=== PATIENT | female | born 1980 | race Caucasian/White ===

== ENCOUNTER 2017-10-18 01:20 | Emergency (ER) | payer BC ==
[~2017-10-18] VITALS: Ht 175.3 cm; Wt 85.0 kg
[2017-10-18 01:25] VITALS: BP 138/72; TEMP 98.5
[2017-10-18 02:04] LABS: BASO # 0.1 (0.0-0.2); BASO % 0.7 % (0.0-2.0); EOS # 0.2 (0.0-0.7); EOS % 1.7 % (0-4.0); GRAN # 4.5 (1.4-6.5); GRAN % 46.5 % (42.2-75.2); HEMOGLOBIN 13.6 g/dl (12.5-16.0); LYMPH % 41.4 % (20.0-51.0); MEAN CELL VOLUME 98 fl (80.0-100.0); MEAN CORPUSCULAR HEMOGLOBIN 33 pg (27.0-31.0); MEAN CORPUSCULAR HGB CONC 34 g/dl (33.0-37.0); MONO # 0.9 (0.1-0.6); MONO % 9.4 % (1.7-9.3); PLATELET COUNT 214 K/mm3 (130-400); RED BLOOD COUNT 4.08 M/mm3 (4.10-5.30); REDCELL DISTRIBUTION WIDTH-CV 11.9 % (11.5-14.5)
[2017-10-18 02:13] LABS: ALBUMIN 4.4 gm/dL (3.5-5.0); BILIRUBIN,TOTAL 0.4 mg/dL (0.0-1.0); CALCIUM 10.2 mg/dL (8.4-10.2); CREATININE, serum 0.73 mg/dL (0.52-1.25); TOTAL PROTEIN 7.5 gm/dL (6.4-8.2)
[2017-10-18 03:00] LABS: COLLECTION METHOD CLEAN CATCH
[2017-10-18 03:06] LABS: MUCOUS Present /lpf; PH 6 (5-8); SQUAMOUS EPITHELIAL 0-2 /hpf; URINE APPEARANCE Clear; URINE BACTERIA None Seen /hpf; URINE BILIRUBIN Negative (NEGATIVE); URINE BLOOD 1+ (NEGATIVE); URINE COLOR Yellow; URINE GLUCOSE Negative (NEGATIVE); URINE KETONE Negative (NEGATIVE); URINE LEUKOCYTE ESTERASE Negative (NEGATIVE); URINE NITRATE Negative (NEGATIVE); URINE PROTEIN(semi-quant) Negative (NEGATIVE); URINE RBC 0-2 /hpf; URINE UROBILINOGEN Negative (NEGATIVE)
[2017-10-18] MEDS ORDERED: ZOFRAN ODT4 MG PO (03:13)
[2017-10-18] MEDS ORDERED: NORCO 325 MG-51 TAB PO (03:13)
[2017-10-18 03:41] VITALS: PULSE 70
== END 2017-10-18 03:42 | disposition home or self-care (01) ==
LOC: COL.ER 01:20
PROVIDERS: Physician Assistant
DX: S22.32XA Fracture of one rib, left side, initial encounter for closed fracture (principal); J93.9 Pneumothorax, unspecified; Z90.710 Acquired absence of both cervix and uterus; W18.39XA Other fall on same level, initial encounter; W22.8XXA Striking against or struck by other objects, initial encounter
CPT/HCPCS: J1170; J2405; J7030; Q9967

== ENCOUNTER 2018-06-11 07:06 | Emergency (ER) | payer BC ==
[~2018-06-11] VITALS: Ht 172.7 cm; Wt 71.8 kg
[~2018-06-11 07:06] MED LIST: NORCO 325 MG-51 TAB PO; ZOFRAN ODT4 MG PO
[2018-06-11 07:13] VITALS: BP 148/92; TEMP 98
[2018-06-11] MEDS ORDERED: NORCO 325 MG-51 TAB PO (08:12)
[2018-06-11 08:21] VITALS: PULSE 88
== END 2018-06-11 08:22 | disposition home or self-care (01) ==
LOC: COL.ER 07:06
DX: S69.92XA Unspecified injury of left wrist, hand and finger(s), initial encounter (principal); X50.1XXA Overexertion from prolonged static or awkward postures, initial encounter; Y92.009 Unspecified place in unspecified non-institutional (private) residence as the place of occurrence of the external cause; Z90.710 Acquired absence of both cervix and uterus; F17.200 Nicotine dependence, unspecified, uncomplicated

== ENCOUNTER 2018-09-01 15:19 | Emergency (ER) | payer BC ==
[~2018-09-01] VITALS: Ht 175.3 cm; Wt 73.6 kg
[2018-09-01 15:23] VITALS: TEMP 98.5
[2018-09-01 15:54] LABS: COLLECTION METHOD CLEAN CATCH
[2018-09-01 16:01] LABS: MUCOUS Present /lpf; PH 6 (5-8); SQUAMOUS EPITHELIAL 0-2 /hpf; URINE APPEARANCE Clear; URINE BACTERIA Rare /hpf; URINE BILIRUBIN Negative (NEGATIVE); URINE BLOOD Negative (NEGATIVE); URINE COLOR Straw; URINE GLUCOSE Negative (NEGATIVE); URINE KETONE Negative (NEGATIVE); URINE LEUKOCYTE ESTERASE Negative (NEGATIVE); URINE NITRATE Negative (NEGATIVE); URINE PROTEIN(semi-quant) Negative (NEGATIVE); URINE RBC 0-2 /hpf; URINE UROBILINOGEN Negative (NEGATIVE)
[2018-09-01 16:11] LABS: BASO # 0.1 (0.0-0.2); BASO % 0.8 % (0.0-2.0); EOS # 0.1 (0.0-0.7); GRAN # 4.6 (1.4-6.5); HEMATOCRIT 45.9 % (37.0-47.0); HEMOGLOBIN 16.1 g/dl (12.5-16.0); LYMPH # 3.2 (1.2-3.4); MEAN CELL VOLUME 102 fl (80.0-100.0); MEAN CORPUSCULAR HEMOGLOBIN 36 pg (27.0-31.0); MEAN CORPUSCULAR HGB CONC 35 g/dl (33.0-37.0); MEAN PLATELET VOLUME 8.9 fl (7.4-10.4); MONO # 0.9 (0.1-0.6); PLATELET COUNT 227 K/mm3 (130-400); RED BLOOD COUNT 4.49 M/mm3 (4.10-5.30); REDCELL DISTRIBUTION WIDTH-CV 11.9 % (11.5-14.5)
[2018-09-01 16:18] LABS: TRICYCLIC ANTIDEPRESS URINE NEGATIVE
[2018-09-01 16:23] LABS: ALANINE AMINOTRANSFERASE 19 U/L (9-52); ALBUMIN 4.5 gm/dL (3.5-5.0); ALCOHOL(ethanol),MEDICAL 200 mg/dL; ALKALINE PHOSPHATASE 65 U/L (50-136); ANION GAP 9 mmol/L (7-16); AST,SGOT 38 U/L (15-37); BILIRUBIN,TOTAL 0.6 mg/dL (0.0-1.0); BLOOD UREA NITROGEN 7 mg/dL (7-17); CALCIUM 9.6 mg/dL (8.4-10.2); CARBON DIOXIDE 25 mmol/L (22-30); CHLORIDE 108 mmol/L (98-107); CREATININE, serum 0.73 mg/dL (0.52-1.25); GLUCOSE 88 mg/dL (74-106); POTASSIUM 4.2 mmol/L (3.4-5.0); SODIUM 143 mmol/L (137-145); TOTAL PROTEIN 7.8 gm/dL (6.4-8.2)
[2018-09-01 16:29] LABS: ACETAMINOPHEN < 10 ug/mL (10-30); SALICYLATE < 1.0 mg/dL
[2018-09-02 00:27] VITALS: BP 142/93; PULSE 101
== END 2018-09-02 00:30 ==
LOC: COL.ER 15:19
PROVIDERS: Emergency Medicine
DX: R45.851 Suicidal ideations (principal); F32.9 Major depressive disorder, single episode, unspecified; F10.129 Alcohol abuse with intoxication, unspecified; Z90.710 Acquired absence of both cervix and uterus; F17.210 Nicotine dependence, cigarettes, uncomplicated; Y90.7 Blood alcohol level of 200-239 mg/100 ml

== ENCOUNTER → 2020-05-07 | Outpatient (CLI) | payer MEDICAID | LOC: MC.RAD 15:13 | DX: Z12.31 Encounter for screening mammogram for malignant neoplasm of breast (principal); N63.20 Unspecified lump in the left breast, unspecified quadrant; N63.10 Unspecified lump in the right breast, unspecified quadrant ==

== ENCOUNTER → 2020-05-14 | Outpatient (CLI) | payer MEDICAID | LOC: MC.RAD 06:57 | DX: N63.20 Unspecified lump in the left breast, unspecified quadrant (principal) ==

== ENCOUNTER → 2020-05-19 | Outpatient (CLI) | payer MEDICAID | LOC: MC.RAD 08:00 | DX: N63.10 Unspecified lump in the right breast, unspecified quadrant (principal) ==

== ENCOUNTER 2020-12-10 02:08 | Emergency (ER) | payer MEDICAID ==
[~2020-12-10] VITALS: Ht 175.3 cm; Wt 93.2 kg
[2020-12-10 02:18] VITALS: TEMP 98.3
[2020-12-10 02:48] LABS: COLLECTION METHOD CLEAN CATCH
[2020-12-10 02:51] LABS: HEMATOCRIT 45.4 % (37.0-47.0); HEMOGLOBIN 15.7 g/dl (12.5-16.0); MEAN CELL VOLUME 93 fl (80.0-100.0); MEAN CORPUSCULAR HEMOGLOBIN 32 pg (27.0-31.0); MEAN CORPUSCULAR HGB CONC 35 g/dl (33.0-37.0); MEAN PLATELET VOLUME 8.4 fl (7.4-10.4); PLATELET COUNT 222 K/mm3 (130-400); RED BLOOD COUNT 4.89 M/mm3 (4.10-5.30); REDCELL DISTRIBUTION WIDTH-CV 13.1 % (11.5-14.5)
[2020-12-10 02:55] LABS: PH 6 (5-8); SQUAMOUS EPITHELIAL 0-2 /hpf; URINE APPEARANCE Clear; URINE BACTERIA Rare /hpf; URINE BILIRUBIN Negative (NEGATIVE); URINE BLOOD Negative (NEGATIVE); URINE COLOR Straw; URINE GLUCOSE Negative (NEGATIVE); URINE KETONE Negative (NEGATIVE); URINE LEUKOCYTE ESTERASE Negative (NEGATIVE); URINE NITRATE Negative (NEGATIVE); URINE PROTEIN(semi-quant) Negative (NEGATIVE); URINE RBC None Seen /hpf; URINE UROBILINOGEN Negative (NEGATIVE); URINE WBC 0-2 /hpf
[2020-12-10 03:02] LABS: ALBUMIN 3.8 gm/dL (3.5-5.0); BILIRUBIN,TOTAL 0.6 mg/dL (0.0-1.0); CALCIUM 8.3 mg/dL (8.4-10.2); CREATININE, serum 0.84 (0.52-1.25); POTASSIUM 3.8 mmol/L (3.4-5.0); TOTAL PROTEIN 7.6 gm/dL (6.4-8.2)
[2020-12-10] MEDS ORDERED: REGLAN 5MG T5 MG/TAB PO (03:32)
[2020-12-10] MEDS ORDERED: BENTYL 20MG20 MG/TAB PO (03:32)
[2020-12-10 03:59] VITALS: BP 131/84; PULSE 62
[2020-12-10 04:18] LABS: EOSINOPHIL 2 % (0-4); LYMPHOCYTE 41 % (20.0-51.0); NEUTROPHILS 50 % (42.0-75.2); PLATELET ESTIMATE NORMAL (NORMAL)
[2020-12-10 04:19] LABS: ANISOCYTOSIS 1+
[2021-03-04] MEDS ORDERED: FISH OIL1000 MG PO (08:13)
== END 2020-12-10 04:06 | disposition home or self-care (01) ==
LOC: COL.ER 02:08
PROVIDERS: Emergency Medicine
DX: R19.7 Diarrhea, unspecified (principal); Z90.710 Acquired absence of both cervix and uterus
CPT/HCPCS: J7120; Q9967

== ENCOUNTER 2020-12-29 19:48 | Emergency (ER) | payer MEDICAID ==
[~2020-12-29] VITALS: Ht 175.3 cm; Wt 93.2 kg
[~2020-12-29 19:48] MED LIST changes: +BENTYL 20MG20 MG/TAB PO; +REGLAN 5MG T5 MG/TAB PO
[2020-12-29 20:01] VITALS: TEMP 98
[2020-12-29] MEDS ORDERED: PROTONIX 40MG T40 MG PO (20:28)
[2020-12-29] MEDS ORDERED: LEXAPRO 10MG10 MG PO (20:29)
[2020-12-29] MEDS ORDERED: ZOFRAN 4MG T4 MG/TAB PO (20:30)
[2020-12-29] MEDS ORDERED: ATARAX 25MG25 MG/TAB PO (20:31)
[2020-12-29 21:42] LABS: BASO # 0.1 (0.0-0.2); BASO % 0.8 % (0.0-2.0); EOS # 0.1 (0.0-0.7); EOS % 1.1 % (0-4.0); GRAN # 2.8 (1.4-6.5); GRAN % 31.5 % (42.2-75.2); HEMOGLOBIN 14.9 g/dl (12.5-16.0); LYMPH # 4.9 (1.2-3.4); LYMPH % 55.8 % (20.0-51.0); MEAN CELL VOLUME 94 fl (80.0-100.0); MEAN CORPUSCULAR HEMOGLOBIN 33 pg (27.0-31.0); MEAN CORPUSCULAR HGB CONC 35 g/dl (33.0-37.0); MEAN PLATELET VOLUME 8.5 fl (7.4-10.4); MONO # 0.9 (0.1-0.6); MONO % 10.6 % (1.7-9.3); PLATELET COUNT 261 K/mm3 (130-400); RED BLOOD COUNT 4.58 M/mm3 (4.10-5.30); REDCELL DISTRIBUTION WIDTH-CV 13.2 % (11.5-14.5)
[2020-12-29 21:49] LABS: ALBUMIN 4.2 gm/dL (3.5-5.0); BILIRUBIN,TOTAL 0.5 mg/dL (0.0-1.0); CALCIUM 8.5 mg/dL (8.4-10.2); CREATININE, serum 0.84 (0.52-1.25); POTASSIUM 3.6 mmol/L (3.4-5.0); TOTAL PROTEIN 8.4 gm/dL (6.4-8.2)
[2020-12-29] MEDS ORDERED: BENTYL 20MG20 MG/TAB PO (22:24)
[2020-12-29] MEDS ORDERED: FLAGYL500 MG PO (22:24)
[2020-12-29] MEDS ORDERED: PHENERGAN 25 TA25 MG PO (22:24)
[2020-12-29 22:52] VITALS: BP 119/85; PULSE 67
[2021-03-04] MEDS ORDERED: FISH OIL1000 MG PO (08:13)
== END 2020-12-29 23:02 | disposition home or self-care (01) ==
LOC: COL.ER 19:48
PROVIDERS: Nurse Practitioner Primary Care
DX: K52.9 Noninfective gastroenteritis and colitis, unspecified (principal); F32.9 Major depressive disorder, single episode, unspecified; F41.9 Anxiety disorder, unspecified; F17.210 Nicotine dependence, cigarettes, uncomplicated; Z90.710 Acquired absence of both cervix and uterus
CPT/HCPCS: J2550; J7030

== ENCOUNTER 2021-02-01 03:12 | Inpatient (IN) | payer MEDICAID ==
[~2021-02-01] VITALS: Ht 175.3 cm; Wt 86.3 kg
[~2021-02-01 03:12] MED LIST changes: +ATARAX 25MG25 MG/TAB PO; +FLAGYL500 MG PO; +LEXAPRO 10MG10 MG PO; +PHENERGAN 25 TA25 MG PO; +PROTONIX 40MG T40 MG PO; +ZOFRAN 4MG T4 MG/TAB PO
[2021-02-01 04:11] LABS: BASO # 0.1 (0.0-0.2); BASO % 0.7 % (0.0-2.0); EOS % 0.3 % (0-4.0); GRAN # 3.8 (1.4-6.5); GRAN % 50.2 % (42.2-75.2); HEMATOCRIT 39.8 % (37.0-47.0); LYMPH # 3.1 (1.2-3.4); LYMPH % 40.6 % (20.0-51.0); MEAN CELL VOLUME 91 fl (80.0-100.0); MEAN CORPUSCULAR HEMOGLOBIN 34 pg (27.0-31.0); MEAN CORPUSCULAR HGB CONC 38 g/dl (33.0-37.0); MEAN PLATELET VOLUME 9.5 fl (7.4-10.4); MONO # 0.6 (0.1-0.6); MONO % 7.8 % (1.7-9.3); PLATELET COUNT 167 K/mm3 (130-400); RED BLOOD COUNT 4.36 M/mm3 (4.10-5.30); REDCELL DISTRIBUTION WIDTH-CV 14.4 % (11.5-14.5)
[2021-02-01 04:18] LABS: COLLECTION METHOD CLEAN CATCH
[2021-02-01 04:29] LABS: PH 7 (5-8); URINE APPEARANCE Hazy; URINE BACTERIA Rare /hpf; URINE BILIRUBIN Negative (NEGATIVE); URINE BLOOD Negative (NEGATIVE); URINE COLOR Amber; URINE GLUCOSE Negative (NEGATIVE); URINE KETONE Trace (NEGATIVE); URINE LEUKOCYTE ESTERASE Negative (NEGATIVE); URINE NITRATE Negative (NEGATIVE); URINE PROTEIN(semi-quant) 1+ (NEGATIVE); URINE RBC 0-2 /hpf; URINE UROBILINOGEN Negative (NEGATIVE)
[2021-02-01 05:03] LABS: ALBUMIN 3.8 gm/dL (3.5-5.0); CALCIUM 8.8 mg/dL (8.4-10.2); CREATININE, serum 0.69 (0.52-1.25); TOTAL PROTEIN 7.8 gm/dL (6.4-8.2)
[2021-02-01 05:05] LABS: POTASSIUM 3.6 mmol/L (3.4-5.0)
[2021-02-01 05:21] LABS: TROPONIN-I 0.175 ng/mL (0.000-0.035)
[2021-02-01 08:23] VITALS: BP 139/76; PULSE 63; TEMP 98.7
--- NOTE | 2021-02-01 08:54 | NUR ---
SW met with the patient to discuss discharge plan. The patient lives in [place] with her boyfriend, Urbano Gamino ([id number]#[phone]), and her children. She states that Urbano is in [facility] right now and that her children are staying with their father while she is here. She reports independence with ADLs and does not have any DME. The patient's PCP is Dr. Hilario Dickey and she receives her medications from [facility]. She reports no difficulties obtaining her meds. The patien does not have a DPOA-HC, but she states that she believes she has one completed and that it designates her father. The patient plans to return home upon discharge. No additional needs at this time. *Discharge plan: home*
[2021-02-01] MEDS ORDERED: VITAMIN B11000 MCG/M (09:28)
--- NOTE | 2021-02-01 09:30 | NUR ---
Patient admitted to room 347. All admission paperwork completed. Ivf per orders. Npo per orders. few ice chips provided. Morphine for pain per request. Will monitor.
--- NOTE | 2021-02-01 11:00 | NUR ---
Spoke to , orders obtained. He reports his PA Jayce will see patient. Cardiology saw patient. Aware of troponin. Echo completed.
[2021-02-01 11:17] VITALS: BP 121/74; PULSE 73; TEMP 99.3
[2021-02-01 16:20] VITALS: BP 138/81; PULSE 83; TEMP 98.6
--- NOTE | 2021-02-01 18:13 | NUR ---
Patient resting in bed. Spoke to Dr. Lundberg. Medication orders obtained. Patient has complaints of headache & gas pain. I updated her on plan of care.
[2021-02-01 19:32] VITALS: BP 146/93; PULSE 71; TEMP 98.6
--- NOTE | 2021-02-01 21:30 | NUR ---
Patient resting in bed. No nausea. Complaints of a headache, tylenol administered. IV fluids infusing. Patient tolerating clear liquid diet. No other needs at this time.
[2021-02-02 00:36] VITALS: BP 126/73; PULSE 46; TEMP 97.7
[2021-02-02 04:49] VITALS: BP 125/73; PULSE 43; TEMP 98.5
[2021-02-02 07:39] VITALS: BP 123/71; PULSE 69; TEMP 98.1
--- NOTE | 2021-02-02 10:53 | NUR ---
Patient alert and oriented, answers questions appropriately. See assessment. Abdomen soft, non distended, tender. +Flatus. +Bowel movement. No c/o at this time.
--- NOTE | 2021-02-02 12:16 | NUR ---
First visit from the beef specialist. No needs right now.
[2021-02-02 12:19] VITALS: BP 138/70; PULSE 53; TEMP 98.5
[2021-02-02 14:41] LABS: ALBUMIN 3.1 gm/dL (3.5-5.0); BILIRUBIN UNCONJUGATED 0.7 mg/dL (0.0-1.1); BILIRUBIN,DIRECT 1.1 mg/dL (0.0-0.4); BILIRUBIN,TOTAL 1.7 mg/dL (0.0-1.0); TOTAL PROTEIN 6.5 gm/dL (6.4-8.2)
[2021-02-02 15:04] LABS: ANION GAP 6 mmol/L (7-16); CALCIUM 8.3 mg/dL (8.4-10.2); CARBON DIOXIDE 29 mmol/L (22-30); CHLORIDE 101 mmol/L (98-107); CREATININE, serum 0.67 (0.52-1.25); GLUCOSE 112 mg/dL (74-106); PHOSPHOROUS 3.2 mg/dL (2.5-4.5); SODIUM 136 mmol/L (137-145)
[2021-02-02 15:05] LABS: BLOOD UREA NITROGEN < 2 mg/dL (7-17)
[2021-02-02 15:07] LABS: POTASSIUM 2.8 mmol/L (3.4-5.0)
[2021-02-02 16:46] VITALS: BP 136/84; PULSE 62; TEMP 98.5
[2021-02-02 19:48] VITALS: BP 118/70; PULSE 62; TEMP 98.4
--- NOTE | 2021-02-02 21:00 | NUR ---
Patient has no complaints of pain. Fluids and potassium infusing per orders. PAtient tolerating clear liquid diet. Ambulating in room independently. No additional needs at this time.
[2021-02-03] VITALS (7 sets, daily range): BP systolic 97–137; BP diastolic 73–91; PULSE 48–94; TEMP 97.3–98.5
--- NOTE | 2021-02-03 01:00 | NUR ---
Patient is having frequent episodes of diarrhea. New orders for immodium.
[2021-02-03 07:06] LABS: BASO % 0.7 % (0.0-2.0); EOS # 0.1 (0.0-0.7); EOS % 2.1 % (0-4.0); GRAN # 2.2 (1.4-6.5); GRAN % 37.9 % (42.2-75.2); LYMPH # 2.9 (1.2-3.4); LYMPH % 49.1 % (20.0-51.0); MEAN CORPUSCULAR HGB CONC 33 g/dl (33.0-37.0); MONO # 0.6 (0.1-0.6); MONO % 9.9 % (1.7-9.3); PLATELET COUNT 108 K/mm3 (130-400); RED BLOOD COUNT 3.42 M/mm3 (4.10-5.30); REDCELL DISTRIBUTION WIDTH-CV 14.8 % (11.5-14.5)
[2021-02-03 07:14] LABS: ALANINE AMINOTRANSFERASE 75 U/L (4-34); ALBUMIN 2.7 gm/dL (3.5-5.0); ALKALINE PHOSPHATASE 165 U/L (50-136); ANION GAP 3 mmol/L (7-16); AST,SGOT 239 U/L (15-37); BILIRUBIN,TOTAL 1.8 mg/dL (0.0-1.0); CALCIUM 8.4 mg/dL (8.4-10.2); CARBON DIOXIDE 27 mmol/L (22-30); CHLORIDE 106 mmol/L (98-107); CREATININE, serum 0.62 (0.52-1.25); GLUCOSE 81 mg/dL (74-106); HEMATOCRIT 32.9 % (37.0-47.0); HEMOGLOBIN 10.9 g/dl (12.5-16.0); MEAN CELL VOLUME 96 fl (80.0-100.0); MEAN CORPUSCULAR HEMOGLOBIN 32 pg (27.0-31.0); POTASSIUM 4.2 mmol/L (3.4-5.0); SODIUM 136 mmol/L (137-145); TOTAL PROTEIN 5.9 gm/dL (6.4-8.2)
[2021-02-03 07:17] LABS: BLOOD UREA NITROGEN < 2 mg/dL (7-17)
--- NOTE | 2021-02-03 09:29 | NUR ---
PT RETURNED TO ROOM FROM HIDA SCAN. PT IS A/O X3, INDEPENDENT IN AND OUT OF ROOM. PT SHOWERING INDEPENDENTLY. POSSIBLE DISCHARGE HOME LATER TODAY.
--- NOTE | 2021-02-03 21:00 | NUR ---
Pt. sitting up in bed. Pt. is a&Ox3, assessment complete. INT to lt. wrist patent. Pt. denies pain or other needs, call light within reach.
[2021-02-04 03:57] VITALS: BP 141/86; PULSE 50; TEMP 98
[2021-02-04 07:00] LABS: BASO % 0.5 % (0.0-2.0); EOS # 0.1 (0.0-0.7); EOS % 2.6 % (0-4.0); GRAN # 2.1 (1.4-6.5); GRAN % 38.6 % (42.2-75.2); HEMOGLOBIN 11.2 g/dl (12.5-16.0); LYMPH # 2.6 (1.2-3.4); LYMPH % 47.1 % (20.0-51.0); MEAN CELL VOLUME 97 fl (80.0-100.0); MEAN CORPUSCULAR HEMOGLOBIN 32 pg (27.0-31.0); MEAN CORPUSCULAR HGB CONC 34 g/dl (33.0-37.0); MEAN PLATELET VOLUME 10.1 fl (7.4-10.4); MONO # 0.6 (0.1-0.6); MONO % 10.8 % (1.7-9.3); PLATELET COUNT 119 K/mm3 (130-400); RED BLOOD COUNT 3.46 M/mm3 (4.10-5.30); REDCELL DISTRIBUTION WIDTH-CV 14.7 % (11.5-14.5)
[2021-02-04 07:02] LABS: HEMATOCRIT 33.4 % (37.0-47.0)
[2021-02-04 07:15] LABS: ALANINE AMINOTRANSFERASE 77 U/L (4-34); ALKALINE PHOSPHATASE 173 U/L (50-136); ANION GAP 7 mmol/L (7-16); AST,SGOT 202 U/L (15-37); BILIRUBIN,TOTAL 1.5 mg/dL (0.0-1.0); CALCIUM 8.6 mg/dL (8.4-10.2); CARBON DIOXIDE 26 mmol/L (22-30); CHLORIDE 105 mmol/L (98-107); CREATININE, serum 0.64 (0.52-1.25); GLUCOSE 88 mg/dL (74-106); SODIUM 138 mmol/L (137-145); TOTAL PROTEIN 6.4 gm/dL (6.4-8.2)
[2021-02-04 07:17] LABS: BLOOD UREA NITROGEN < 2 mg/dL (7-17)
--- NOTE | 2021-02-04 07:39 | NUR ---
PT INDEPENDENT IN AND OUT OF ROOM. ASSESSMENTS COMPLETE VSS, LABS WNL, PAIN WELL CONTROLLED WITH PO MEDS. PT SHOWER INDEPENDENTLY.
[2021-02-04 08:00] VITALS: BP 148/93; PULSE 59; TEMP 98.3
--- NOTE | 2021-02-04 12:44 | NUR ---
REVIEWED DISCHARGE INSTRUCTIONS WITH PATIENT ANSWERED QUESTIONS. PT LEFT FLOOR AMBULATORY. INT DISCONTINUED PT TOLERATED WELL.
[2021-03-04] MEDS ORDERED: FISH OIL1000 MG PO (08:13)
== END 2021-02-04 12:46 | disposition home or self-care (01) | DRG 439 ==
LOC: COL.ER 03:12 → SURG 06:24
PROVIDERS: Emergency Medicine; Physician Assistant; ADMIT Emergency Medicine
DX: K85.90 Acute pancreatitis without necrosis or infection, unspecified (principal); E87.1 Hypo-osmolality and hyponatremia; K58.9 Irritable bowel syndrome, unspecified; K21.9 Gastro-esophageal reflux disease without esophagitis; F17.210 Nicotine dependence, cigarettes, uncomplicated; F32.9 Major depressive disorder, single episode, unspecified; F41.9 Anxiety disorder, unspecified; E86.0 Dehydration; K76.0 Fatty (change of) liver, not elsewhere classified; E87.6 Hypokalemia; K82.8 Other specified diseases of gallbladder; K81.1 Chronic cholecystitis; I10 Essential (primary) hypertension; Z90.710 Acquired absence of both cervix and uterus
CPT/HCPCS: 99232-AI; 99238; A9537; J1650; J2270; J2405; J3480; J7030; J7120; Q9967

== ENCOUNTER → 2021-03-08 | Outpatient (CLI) | payer MEDICAID ==
[~2021-03-08] VITALS: Ht 175.4 cm; Wt 95.0 kg
[~2021-03-08] MED LIST changes: +FISH OIL1000 MG PO; +VITAMIN B11000 MCG/M
[2021-03-08 11:27] VITALS: BP 119/68; PULSE 49
== END ==
LOC: COL.CARD 10:23
DX: I21.4 Non-ST elevation (NSTEMI) myocardial infarction (principal)
CPT/HCPCS: A9500

== ENCOUNTER → 2021-06-04 | Outpatient (CLI) | payer MEDICAID | LOC: MC.RAD 08:48 | DX: Z12.31 Encounter for screening mammogram for malignant neoplasm of breast (principal) ==

== ENCOUNTER 2021-06-14 18:47 | Emergency (ER) | payer MEDICAID ==
[~2021-06-14] VITALS: Ht 175.3 cm; Wt 95.5 kg
[2021-06-14 20:10] LABS: COLLECTION METHOD CLEAN CATCH
[2021-06-14 20:16] LABS: BASO % 0.6 % (0.0-2.0); EOS % 0.4 % (0-4.0); GRAN # 3.7 (1.4-6.5); GRAN % 54.5 % (42.2-75.2); HEMATOCRIT 42.1 % (37.0-47.0); HEMOGLOBIN 14.6 g/dl (12.5-16.0); LYMPH # 2.7 (1.2-3.4); LYMPH % 39.9 % (20.0-51.0); MEAN CELL VOLUME 87 fl (80.0-100.0); MEAN CORPUSCULAR HEMOGLOBIN 30 pg (27.0-31.0); MEAN CORPUSCULAR HGB CONC 35 g/dl (33.0-37.0); MONO # 0.3 (0.1-0.6); MONO % 4.5 % (1.7-9.3); PLATELET COUNT 262 K/mm3 (130-400); RED BLOOD COUNT 4.83 M/mm3 (4.10-5.30); REDCELL DISTRIBUTION WIDTH-CV 12.2 % (11.5-14.5)
[2021-06-14 20:20] LABS: PH 6 (5-8); SQUAMOUS EPITHELIAL 0-2 /hpf; URINE APPEARANCE Clear; URINE BACTERIA None Seen /hpf; URINE BILIRUBIN Negative (NEGATIVE); URINE BLOOD Negative (NEGATIVE); URINE COLOR Yellow; URINE GLUCOSE Negative (NEGATIVE); URINE KETONE Trace (NEGATIVE); URINE LEUKOCYTE ESTERASE Negative (NEGATIVE); URINE NITRATE Negative (NEGATIVE); URINE PROTEIN(semi-quant) Negative (NEGATIVE); URINE RBC 0-2 /hpf; URINE UROBILINOGEN Negative (NEGATIVE)
[2021-06-14 20:35] LABS: ALBUMIN 4.2 gm/dL (3.5-5.0); BILIRUBIN,TOTAL 0.3 mg/dL (0.2-1.2); CREATININE, serum 0.72 mg/dL (0.57-1.11); POTASSIUM 3.9 mmol/L (3.5-4.5); TOTAL PROTEIN 8.2 gm/dL (6.2-8.1)
[2021-06-14 21:16] VITALS: BP 138/84; PULSE 80; TEMP 98.7
== END 2021-06-14 21:16 | disposition home or self-care (01) ==
LOC: COL.ER 18:47
PROVIDERS: Nurse Practitioner
DX: R11.2 Nausea with vomiting, unspecified (principal); R19.7 Diarrhea, unspecified; F17.210 Nicotine dependence, cigarettes, uncomplicated
CPT/HCPCS: J2405; J7030

== ENCOUNTER 2021-08-25 16:30 | Emergency (ER) | payer MEDICAID ==
[~2021-08-25] VITALS: Ht 175.3 cm; Wt 95.5 kg
[2021-08-25 17:48] LABS: BASO # 0.1 K/mm3 (0.0-0.2); BASO % 0.6 % (0.0-2.0); EOS # 0.2 K/mm3 (0.0-0.7); EOS % 1.3 % (0-4.0); GRAN # 5.4 K/mm3 (1.4-6.5); GRAN % 46.8 % (42.2-75.2); HEMATOCRIT 38.6 % (37.0-47.0); LYMPH # 4.9 K/mm3 (1.2-3.4); LYMPH % 42.6 % (20.0-51.0); MEAN CELL VOLUME 92 fl (80.0-100.0); MEAN CORPUSCULAR HEMOGLOBIN 31 pg (27.0-31.0); MEAN CORPUSCULAR HGB CONC 34 g/dl (33.0-37.0); MEAN PLATELET VOLUME 8.8 fl (7.4-10.4); MONO % 8.3 % (1.7-9.3); PLATELET COUNT 278 K/mm3 (130-400); RED BLOOD COUNT 4.22 M/mm3 (4.10-5.30); REDCELL DISTRIBUTION WIDTH-CV 12.3 % (11.5-14.5)
[2021-08-25 17:59] LABS: COLLECTION METHOD CLEAN CATCH
[2021-08-25 18:01] LABS: ALBUMIN 3.9 gm/dL (3.5-5.0); BILIRUBIN,TOTAL 0.3 mg/dL (0.2-1.2); CALCIUM 9.1 mg/dL (8.4-10.2); CREATININE, serum 0.76 mg/dL (0.57-1.11); POTASSIUM 3.4 mmol/L (3.5-4.5); TOTAL PROTEIN 7.5 gm/dL (6.2-8.1)
[2021-08-25 18:05] LABS: PH 6 (5-8); SQUAMOUS EPITHELIAL None Seen /hpf (0-10); URINE APPEARANCE Clear (CLEAR/HAZY); URINE BACTERIA None Seen (NONE SEEN); URINE BILIRUBIN Negative (NEGATIVE); URINE BLOOD Negative (NEGATIVE); URINE COLOR Amber (YELLOW); URINE GLUCOSE Negative (NEGATIVE); URINE KETONE Negative (NEGATIVE); URINE LEUKOCYTE ESTERASE Negative (NEGATIVE); URINE NITRATE Negative (NEGATIVE); URINE PROTEIN(semi-quant) Negative (NEGATIVE); URINE RBC None Seen /hpf (0-2); URINE UROBILINOGEN Negative (NEGATIVE)
[2021-08-25] MEDS ORDERED: CARAFATE 1GM1 G PO (19:15)
[2021-08-25 20:15] VITALS: BP 148/64; PULSE 78; TEMP 98.2
== END 2021-08-25 20:15 | disposition home or self-care (01) ==
LOC: COL.ER 16:30
PROVIDERS: Emergency Medicine; Physician Assistant
DX: K29.20 Alcoholic gastritis without bleeding (principal); N39.0 Urinary tract infection, site not specified; F32.A Depression, unspecified; Z79.899 Other long term (current) drug therapy
CPT/HCPCS: C9113; J2405; J7030

== ENCOUNTER 2021-09-09 14:20 | Emergency (ER) | payer MEDICAID ==
[~2021-09-09] VITALS: Ht 175.3 cm; Wt 95.5 kg
[~2021-09-09 14:20] MED LIST changes: +CARAFATE 1GM1 G PO
[2021-09-09 15:08] VITALS: BP 115/80; PULSE 97; TEMP 98.2
[2021-09-09 16:00] LABS: HEMATOCRIT 41.7 % (37.0-47.0); HEMOGLOBIN 14.7 g/dl (12.5-16.0); MEAN CELL VOLUME 90 fl (80.0-100.0); MEAN CORPUSCULAR HEMOGLOBIN 32 pg (27-31); MEAN CORPUSCULAR HGB CONC 35 g/dl (33.0-37.0); MEAN PLATELET VOLUME 8.2 fl (7.4-10.4); PLATELET COUNT 305 K/mm3 (130-400); RED BLOOD COUNT 4.66 M/mm3 (4.10-5.30); REDCELL DISTRIBUTION WIDTH-CV 12.5 % (11.5-14.5)
[2021-09-09 16:26] LABS: ALBUMIN 4.2 gm/dL (3.5-5.0); BILIRUBIN,TOTAL 0.3 mg/dL (0.2-1.2); CREATININE, serum 0.88 mg/dL (0.57-1.11); POTASSIUM 3.9 mmol/L (3.5-4.5); TOTAL PROTEIN 7.8 gm/dL (6.2-8.1)
[2021-09-09 16:59] LABS: BAND 3 % (0-10); EOSINOPHIL 2 % (0-4); LYMPHOCYTE 51 % (20.0-51.0); NEUTROPHILS 37 % (42.0-75.2); PLATELET ESTIMATE NORMAL (NORMAL)
== END 2021-09-09 17:20 | disposition home or self-care (01) ==
LOC: COL.ER 14:20
PROVIDERS: Student in an Organized Health Care Education/Training Program
DX: R10.13 Epigastric pain (principal); E78.1 Pure hyperglyceridemia; F32.A Depression, unspecified; Z79.899 Other long term (current) drug therapy; Z90.710 Acquired absence of both cervix and uterus

== ENCOUNTER → 2023-10-17 | Outpatient (CLI) | payer MEDICAID | LOC: MC.RAD 07:31 | DX: Z12.31 Encounter for screening mammogram for malignant neoplasm of breast (principal) ==